=== PATIENT | male | born 1965 | race Hispanic/Latino ===

== ENCOUNTER 2017-09-12 17:09 | Emergency (ER) | payer MEDICARE ==
[~2017-09-12] VITALS: Ht 167.6 cm; Wt 174.6 kg
[2017-09-12] MEDS: INDOMETHACIN 75 MG CAPCR PO SCH (17:48)
[2017-09-12] MEDS: HYDROCODONE/APAP 10MG-325MG TAB PO ONE (18:11)
[2017-09-12] MEDS: DEXAMETHASONE SOD PHOS 10 MG/1 ML VIAL INJ ONE (18:11)
--- NOTE | 2017-09-12 18:29 | Diagnostic Imaging Report ---
PROCEDURE:X-RAY RIGHT KNEE, THREE OR MORE VIEWS COMPARISON:None. INDICATIONS:RIGHT KNEE PAIN, GOUT FINDINGS: The bones are well-mineralized. There are no fractures, subluxations, lytic or blastic lesions. There is no evidence of a joint effusion. CONCLUSION: No acute radiographic abnormality. Dictated by: Enmanuel Delaney M.D. on 09/12/2017 at 18:30 Electronically approved by: Enmanuel Delaney M.D. on 09/12/2017 at 18:30
[2017-09-12 18:31] LABS: BASOPHILS % 0.3 % (0.0-1.0); EOSINOPHILS # (AUTO) 0.3 (0.0-0.4); EOSINOPHILS % 2.3 % (0.0-6.0); HEMATOCRIT 43.2 % (38.2-49.6); HEMOGLOBIN 14.2 g/dL (14.0-18.0); LYMPHOCYTES # (AUTO) 1.9 (1.0-3.2); LYMPHOCYTES % 16.7 % (18.0-39.1); MEAN CORPUSCULAR HGB CONC 32.9 g/dL (31-35); MONOCYTES % 8.9 % (4.4-11.3); NEUTROPHILS # (AUTO) 8.3 (2.1-6.9); NEUTROPHILS % 71.5 % (38.7-80.0); PLATELET COUNT 372 x10e3/uL (140-360); RED BLOOD COUNT 5.08 x10e6/uL (4.3-5.7)
[2017-09-12 18:48] LABS: ALANINE AMINOTRANSFERASE 37 IU/L (0-55); ALBUMIN 2.9 g/dL (3.5-5.0); ALBUMIN/GLOBULIN RATIO 0.6 (0.8-2.0); ALKALINE PHOSPHATASE 65 IU/L (40-150); ANION GAP 12.3 mmol/L (8-16); BLOOD UREA NITROGEN 13 mg/dL (7-26); BUN/CREATININE RATIO 11 (6-25); CALCIUM 9.5 mg/dL (8.4-10.2); CARBON DIOXIDE 29 mmol/L (22-29); CHLORIDE 102 mmol/L (98-107); CREATININE, SERUM 1.15 mg/dL (0.72-1.25); EST GLOMERULAR FILTRATION RATE > 60 ML/MIN (60-); GLUCOSE 128 mg/dL (74-118); POTASSIUM 4.3 mmol/L (3.5-5.1); SODIUM 139 mmol/L (136-145)
== END 2017-09-12 19:10 | disposition home or self-care (01) ==
LOC: ER 17:09
DX: M25.561 Pain in right knee (principal); M10.072 Idiopathic gout, left ankle and foot
CPT/HCPCS: 36415; 80053; 84550; 85025; 99284; J1100

== ENCOUNTER → 2020-10-25 | Outpatient (CLI) | payer MEDICARE | LOC: SLEEP 19:41 | PROVIDERS: ATTEND Otolaryngology | DX: G47.33 Obstructive sleep apnea (adult) (pediatric) (principal); Z20.822 Contact with and (suspected) exposure to COVID-19 | CPT/HCPCS: 95810; U0002 ==